=== PATIENT | male | born 1980 | race Caucasian/White ===

== ENCOUNTER 2017-06-04 13:25 | Emergency (ER) | payer MEDICAID ==
[~2017-06-04] VITALS: Ht 185.4 cm; Wt 90.5 kg
[2017-06-04 13:30] VITALS: BP 170/108
== END 2017-06-04 14:53 | disposition left against medical advice (07) ==
LOC: EMS 13:28
DX: Z53.21 Procedure and treatment not carried out due to patient leaving prior to being seen by health care provider (principal)

== ENCOUNTER 2017-06-06 12:40 | Emergency (ER) | payer MEDICAID ==
[~2017-06-06] VITALS: Ht 180.3 cm; Wt 93.2 kg
[2017-06-06 12:53] VITALS: BP 161/100
== END 2017-06-06 14:45 | disposition left against medical advice (07) ==
LOC: EMS 12:41
DX: M25.572 Pain in left ankle and joints of left foot (principal); F12.90 Cannabis use, unspecified, uncomplicated; F17.210 Nicotine dependence, cigarettes, uncomplicated; Z53.21 Procedure and treatment not carried out due to patient leaving prior to being seen by health care provider